=== PATIENT | female | born 1980 | race Hispanic/Latino ===

== ENCOUNTER 2017-12-20 08:30 | Outpatient (CLI) | payer OTHER ==
--- NOTE | 2017-12-24 11:36 | Cat Scan Report ---
CT angiogram pelvis with venogram component Indication: Chronic left leg swelling and venous insufficiency with leg pain Technique: Contiguous transaxial images of the pelvis extending down to the upper thighs were obtained following administration of intravenous contrast. Reformatted images in the coronal and sagittal plane were obtained. Delayed images were also obtained. Findings: Portion of the right kidney is visualized. 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 The aorta is smooth in caliber with normal appearance to the bifurcation. The common iliac, external iliac, internal iliac, common femoral, profundo femoral and proximal superficial femoral arteries are patent. The inferior vena cava is normal in caliber. The bifurcation is visualized. There appears to be mild to moderate compression of the origin of the left common iliac vein due to right common iliac artery coursing anteriorly over the vein. The remainder of the pelvic veins which include the external and and internal iliac veins as well as the common femoral vein is widely patent. There are no other areas of visualize compression or stenosis. No significant collaterals identified. Patient has had previous hysterectomy. There is no evidence for bowel obstruction or free fluid. Impression: 1. 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 No other identified areas of compression. 3. Patient appears to have a single right kidney. 4. Previous hysterectomy.
== END 2017-12-20 08:31 | disposition home or self-care (01) ==
LOC: CT 08:30
PROVIDERS: ATTEND Radiology Vascular & Interventional Radiology
DX: I87.392 Chronic venous hypertension (idiopathic) with other complications of left lower extremity (principal); I87.2 Venous insufficiency (chronic) (peripheral); Z90.710 Acquired absence of both cervix and uterus
CPT/HCPCS: 72191; Q9967